=== PATIENT | male | born 1945 | race Hispanic/Latino ===

== ENCOUNTER 2017-01-19 11:06 | Day surgery (SDC) | payer MEDICARE, BC ==
[~2017-01-19 11:06] MED LIST: RINGER'S SOLUTION,LACTATED 1,000 ML IV PRN; ceFAZolin SODIUM 2 GM in DEXTROSE 5 % IN WATER 50 ML IV PRN
[2017-01-19] MEDS ORDERED: RINGER'S SOLUTION,LACTATED 1,000 ML IV ONE (13:15)
[2017-01-19] MEDS ORDERED: BUPIVACAINE HCL/EPINEPHRINE 50 ML VIAL IJ ONE ×2 (13:15)
[2017-01-19] MEDS ORDERED: RINGER'S SOLUTION,LACTATED 1,000 ML IV PRN (15:12)
[2017-01-19] MEDS ORDERED: oxyCODONE HCL/ACETAMINOPHEN 1 TAB TABLET PO ONE (16:00)
[2017-01-19 16:38] VITALS: BP 118/61
--- NOTE | 2017-01-19 16:44 | OR ---
Operative Report - Dictated Report Narrative: Date of operation: 01/19/2017 Preoperative diagnosis: History of colon polyp. Right inguinal hernia Postoperative diagnosis: Diverticulosis with angulation at 50 cm precluding proximal exam. Direct right inguinal hernia Operation: Colonoscopy to 50 cm. Repair of direct right inguinal hernia using Bard mesh plug and patch Surgeon: BRYNN Baum MD Anesthesia: Carlos Shetty CRNA Indications for procedure: The patient is a 71-year-old male referred by Dr. Ovalle. He has an increasingly symptomatic right inguinal hernia. He had a tubular adenoma removed at colonoscopy in 2006 Findings: Sigmoid diverticulosis with angulation at 50 cm precluding proximal exam. Direct right inguinal hernia Narrative of procedure: The patient was identified preoperatively, the surgical site was marked, and prior to the administration of anesthetic a multidisciplinary timeout was observed. The patient was placed supine, SCDs were applied, and 2 g of intravenous Ancef administered. Gen. LMA Anesthetic was administered. Colonoscopy: The patient was placed in the left lateral position with appropriate padding and monitoring and the perineum was inspected. There was a single pilonidal pit with no evidence of inflammation. The external appearance of the anus was normal. Sphincter tone was good. The flexible fiberoptic colonoscope was inserted into the rectum which was insufflated with air. The rectal mucosa and submucosal vascular pattern appeared normal. The prep was seen to be complete. The scope was advanced proximally to the sigmoid colon which contained numerous large non-impacted noninflamed diverticular openings. At 50 cm which represented the junction between the sigmoid and descending colon there was sharp angulation. Despite persistence this could not be negotiated under direct vision. The scope was accordingly withdrawn to the rectum and readvanced on 3 separate occasions with similar result. There were no polyps to the level examined. Accordingly the scope was withdrawn to the level of the rectum and the procedure was terminated. Repair of right inguinal hernia: The patient was returned to the supine position without incident. The patient's abdomen and genitalia were prepped with Betadine solution and the right groin isolated with 4 sterile towels. The remainder of the patient was covered with a sterile disposable drape. A transverse skin incision was made over the midportion of the right inguinal canal. Dissection was carried through subcutaneous tissue with electrocautery until the fascia of the external oblique aponeurosis was encountered. This was incised in the direction of its fibers down to and including the external inguinal ring. The ilioinguinal nerve was identified and protected throughout the procedure. Cord structures were encircled at the pubic tubercle, and a Sciota drain placed for traction. Inspection of the inguinal floor revealed a direct hernia which could be reduced. Inspection of the cord revealed no evidence of indirect sac. A Bard mesh plug was placed in the defect in the inguinal floor and secured circumferentially to the pubic tubercle, along the conjoined tendon, and along the shelving border of the inguinal ligament with interrupted sutures of 0 Ethibond. A suture of 0 Ethibond was placed between the conjoined tendon, lateral border of the plug, and shelving border of the inguinal ligament to fashion a new internal inguinal ring. A tailored mesh patch was placed in the inguinal floor and secured circumferentially to the pubic tubercle, along the conjoined tendon, and along the shelving border of the inguinal ligament with interrupted sutures of 0 Ethibond. The wings of the patch were wrapped around the cord structures and secured laterally with additional interrupted sutures of 0 Ethibond. The new internal inguinal ring was found to be of sufficient caliber to admit cord structures without undue constriction. The wound was inspected for hemostasis, which appeared complete. The cord structures and ilioinguinal nerve were returned to an anatomic position. After receiving a correct sponge needle and instrument count attention was turned to closing the wound. The external oblique aponeurosis was approximated with a running suture of 2-0 Vicryl. Subcutaneous tissues were approximated with interrupted sutures of 2-0 chromic. The skin was secured with a running subcuticular suture of 4-0 Vicryl. The operative site was washed and dried. A dressing of Dermabond, folded 4 x 4, and Medipore tape was applied. The scrotum was checked to ensure that the testicles were in anatomic position. The operative procedure was terminated at this point. The patient tolerated the anesthetic and procedure well without complication. There was no measurable blood loss. No specimen was submitted. 0.5% Marcaine with epinephrine was used for local anesthetic infiltration. The patient was transferred to the recovery room awake, extubated , and in stable condition. The patient remained stable throughout a period of postoperative observation. He was able to tolerate PO intake. His pain was controlled with Percocet. He was able to ambulate without assistance. The dressing remained dry. He was discharged home with instructions not to lift and not to drive. He is to keep the current dressing dry and intact for 48 hours, but then may shower and change the dressing daily or as needed. The patient was given a prescription for Percocet 5/325 mg #30 1-2 po Q4-6hrs prn pain. The patient has phone numbers to call for questions or prn signs of wound infection or hematoma. A return office appointment was made for 1 week. I did discuss the fact that colonoscopy was not possible due to the angulation at 50 cm, and a double contrast barium enema can be scheduled electively for screening after he recovers from his hernia surgery. A pamphlet on diverticular disease was reviewed with him and given to him Reviewed and electronically signed
== END 2017-01-19 11:07 | disposition home or self-care (01) ==
LOC: AMB 11:06
PROVIDERS: ATTEND Surgery
PROC: 0DJD8ZZ Inspection of Lower Intestinal Tract, Via Natural or Artificial Opening Endoscopic (ICD-10-PCS; principal; 2017-01-19 12:30)
PROC: 0YU50JZ Supplement Right Inguinal Region with Synthetic Substitute, Open Approach (ICD-10-PCS; 2017-01-19 12:30)
DX: Z12.11 Encounter for screening for malignant neoplasm of colon (principal); K57.30 Diverticulosis of large intestine without perforation or abscess without bleeding; K40.90 Unilateral inguinal hernia, without obstruction or gangrene, not specified as recurrent; I10 Essential (primary) hypertension; E11.9 Type 2 diabetes mellitus without complications; E78.5 Hyperlipidemia, unspecified; Z86.010 Personal history of colon polyps; Z87.891 Personal history of nicotine dependence; Z68.25 Body mass index [BMI] 25.0-25.9, adult
CPT/HCPCS: 49505; G0105